=== PATIENT | male | born 2000 | race African-American/Black ===

== ENCOUNTER 2023-11-05 22:23 | Emergency (ER) | payer OTHER ==
[~2023-11-05] VITALS: Ht 177.8 cm; Wt 68.0 kg
[2023-11-05 23:59] VITALS: TEMP 98
[2023-11-06] MEDS ORDERED: CLINDAMYCIN HCL 150 MG CAPSULE ONE (01:40)
[2023-11-06] MEDS: CLINDAMYCIN HCL 150 MG CAPSULE PO ONE (01:42)
[2023-11-06 01:50] LABS: BASOPHILS % (AUTO) 0.4 % (0.0-2.0); EOSINOPHILS % (AUTO) 0.5 % (0.0-6.0); HEMATOCRIT 39 % (39-51); LYMPHOCYTES % (AUTO) 24.6 % (20.0-44.0); MEAN CORPUSCULAR HEMOGLOBIN 28 PG (26.0-33.0); MEAN CORPUSCULAR HGB CONC 34 g/dl (31.0-36.0); MEAN CORPUSCULAR VOLUME 84 fL (80-96); MONOCYTES # (AUTO) 0.8 K/uL (0.1-1.30); MONOCYTES % (AUTO) 9.5 % (2.0-12.0); NEUTROPHILS # (AUTO) 5.2 K/uL (1.8-8.9); PLATELET COUNT (AUTO) 275 K/uL (150-450); RED BLOOD CELL COUNT(AUTO) 4.62 MIL/uL (4.5-6.0); RED CELL DISTRIBUTION WIDTH 14.1 % (11.5-15.0)
[2023-11-06] MEDS ORDERED: CLIN150C16 PO (02:06)
[2023-11-06 02:26] LABS: ALBUMIN 3.1 g/dL (3.4-5.0); BILIRUBIN,TOTAL 0.4 mg/dL (0.2-1.0); CREATININE 0.8 mg/dL (0.6-1.3); POTASSIUM 3.8 mmol/L (3.5-5.1); TOTAL PROTEIN, SERUM 7.7 g/dL (6.4-8.2)
[2023-11-06 03:58] VITALS: BP 147/82; O2SAT 99
== END 2023-11-06 03:58 | disposition home or self-care (01) ==
LOC: ER 22:27
DX: L03.012 Cellulitis of left finger (principal); F19.10 Other psychoactive substance abuse, uncomplicated; F17.200 Nicotine dependence, unspecified, uncomplicated; Z60.2 Problems related to living alone
CPT/HCPCS: 36415; 80053-TC; 85025-TC